=== PATIENT | female | born 1945 | race Caucasian/White ===

== ENCOUNTER 2019-07-17 18:25 | Emergency (ER) | payer OTHER, SELFPAY ==
[2019-07-17] VITALS (9 sets, daily range): BP systolic 143–196; BP diastolic 80–97; PULSE 68–77; RESP 16; TEMP 36.3–37; O2SAT 96–99; BMI 21.7
--- NOTE | 2019-07-17 18:30 | DI.RAD.S_ITS ---
PROCEDURE: XR SHOULDER LT MIN 2V INDICATIONS: possible dislocation TECHNIQUE: 2 views of the shoulder were acquired. COMPARISON: None. FINDINGS: Bones: The humeral head is dislocated inferior to the glenohumeral joint. There is a contour irregularity of the humeral head. Soft tissues: No suspicious soft tissue calcifications. IMPRESSION: Anterior dislocation with suspected humeral head fracture. Is not well characterized secondary to positioning. Dictated by: Violeta Higgins M.D. on 07/17/2019 at 18:54 Approved by: Violeta Higgins M.D. on 07/17/2019 at 18:55
--- NOTE | 2019-07-17 18:36 | ED_ITS ---
HPI - General Adult General Chief complaint: Extremity Injury, Upper Stated complaint: fall, injury to left shoulder Time Seen by Provider: 07/17/19 18:30 Source: patient Mode of arrival: Wheelchair Limitations: no limitations History of Present Illness HPI narrative: Patient is a 73-year-old female not on blood thinners here for evaluation of a left shoulder injury. She states that earlier this evening she tripped and fell landing on her left shoulder. Has had pain since then. She also has a bruise on her left forehead. There was no loss of consciousness. Has chronic neck pain she states that this has not changed. No other injuries reported from the event. She did see the medics over on [facility] and arrived in a sling. Related Data Previous Rx's Medication Instructions Recorded hydrocodone-acetaminophen [Seymour] 1 tab PO Q4-6H PRN #14 tab 07/17/19 Review of Systems Constitutional Constitutional: Denies fever(s) Eyes Eyes: Denies diplopia Cardiovascular Cardiovascular: Denies chest pain and Denies dyspnea Respiratory Respiratory: Denies dyspnea Gastrointestinal Gastrointestinal: Denies abdominal pain, Denies nausea and Denies vomiting Musculoskeletal Musculoskeletal: Denies back pain Comments: Left shoulder pain Integumentary/Breasts Comments: Bruise above the left eye Neurologic Neurologic: Denies behavioral changes Psychiatric Psychiatric: Denies behavioral changes Hematologic/Lymphatic Hematologic/Lymphatic: Denies easy bleeding and Denies easy bruising Patient History Medical History Healthy adult (Acute) Social History Smoking Status: Never smoker alcohol intake frequency: holidays/special occasions only Substance Use Type: does not use Exam Initial Vital Signs Initial Vital Signs: Vital Signs Temperature 97.4 F L 07/17/19 18:32 Pulse Rate 72 07/17/19 18:32 Respiratory Rate 16 07/17/19 18:32 Blood Pressure 196/90 H 07/17/19 18:32 Pulse Oximetry 97 07/17/19 18:32 Const General: cooperative and comfortable Orientation: alert, awake and oriented x3 HENMT Head: abrasion Nose: external nose normal Face and sinus: normal facial exam Resp Effort & Inspection: normal respiratory effort Auscultation: clear to auscultation bilaterally Cardio Rate: regular rate Rhythm: regular rhythm Pulses: radial pulses present on the left Back/Spine/Pelvis Cervical Spine: No collar present and No cervical spinal tenderness Skin Other: Small abrasion above the left eye. Small amount ecchymosis. No depressed skull fracture felt underneath Neuro General: alert, awake and oriented x3 Other: Sensation intact over left shoulder and distal left arm Extrem Other: Obvious deformity of left shoulder. Left elbow unremarkable. Left wrist left hand unremarkable Psych Appearance: grossly normal and well kempt Procedures Orthopedic Joint Reduction Joint #1: Time Out Performed: Yes Side: left Joint Reduction Location: shoulder Analgesia: procedural sedation Shoulder Technique Used (if applicable): Milch Post-reduction neuro exam: intact and no change Post-reduction vascular: intact and no change Post Reduction X-Ray Obtained: Yes Splint Applied: Yes (Sling) Patient Tolerated Procedure: Well and No complications Orthopedic Splinting/Casting Injury #1: Side: left Upper Extremity Injury Location: shoulder Upper Extremity Immobilizer: sling/shoulder immobilizer Post splinting neuro exam: intact Post splinting vascular exam: intact Placed by: Nursing Procedural Sedation Patient Age: Patient is 5yrs or older Consent signed: Yes Time out performed: Yes Indication: fracture/dislocation reduction Presedation Evaluation: See HPI ASA Class: I Mallampati Airway Classification: Class I Preparation: monitoring and evaluation advisor applied, pulse oximeter, capnometry used and s upplemental O2 applied IV Propofol dose (mg): 70 ED Sedation Level: Moderate (Concious) Patient Tolerated Procedure: Well Complications: none Course Orders Ordered: Discontinued Medications Hydrocodone Bitart/Acetaminophen (Seymour 5/325) 1 tab PO NOW ONE Stop: 07/17/19 20:18 Last Admin: 07/17/19 20:22 Dose: 1 tab Documented by: NICOLEEED Hydrocodone Bitart/Acetaminophen (Vicodin Prepack) 1 bottle MISC SEEINSTR ONE Stop: 07/17/19 20:18 Last Admin: 07/17/19 20:22 Dose: 1 bottle Documented by: NICOLEEED Hydromorphone HCl (Dilaudid) 0.5 mg IV NOW ONE Stop: 07/17/19 18:41 Last Admin: 07/17/19 18:50 Dose: 0.5 mg Documented by: ABHAY Hydromorphone HCl (Dilaudid) 0.5 mg IV NOW ONE Stop: 07/17/19 18:58 Last Admin: 07/17/19 19:01 Dose: 0.5 mg Documented by: ABHAY Sodium Chloride (Normal Saline 0.9%) 1,000 mls @ 125 mls/hr IV CONT QUITA Last Infusion: 07/17/19 20:17 Dose: 0 mls/hr Documented by: Admin: 07/17/19 19:33 Dose: 125 mls/hr Documented by: THOMAS Propofol (Diprivan) 100 mg IV NOW ONE Stop: 07/17/19 19:23 Last Admin: 07/17/19 19:32 Dose: 100 mg Documented by: THOMAS Vital Signs Vital signs: Vital Signs - 8 hr 07/17/19 18:32 07/17/19 18:50 07/17/19 19:46 Temperature 97.4 F L Pulse Rate 72 72 Pulse Rate [Left Radial] 68 Respiratory Rate 16 16 Blood Pressure 196/90 H Blood Pressure [Right Arm] 175/97 H Pulse Oximetry 97 97 07/17/19 19:51 07/17/19 19:56 07/17/19 20:01 Temperature Pulse Rate 69 70 77 Pulse Rate [Left Radial] Respiratory Rate 16 16 16 Blood Pressure Blood Pressure [Right Arm] 175/97 H 155/88 H 143/86 H Pulse Oximetry 97 96 96 07/17/19 20:16 07/17/19 20:36 Temperature 98.6 F Pulse Rate 71 74 Pulse Rate [Left Radial] Respiratory Rate 16 16 Blood Pressure 170/80 H Blood Pressure [Right Arm] 173/87 H Pulse Oximetry 98 99 Medical Decision Making Lab Data Labs: Point of Care Testing Test Results Not applicable Point of care testing: Point of Care Testing Test Results Not applicable Imaging Data X-ray shoulder: Radiologist's impression: [address] [address] XRay Report Signed Patient: Rabia Saha#: [id number] : 4Acct:[id number] Age/Sex: 73 / FDate of Service: 07/17/19 Loc: ED Accession Number: [id number] Procedure: XR shoulder LT min 2V Ordering Provider: Guevara Hood D.O. PROCEDURE: XR SHOULDER LT MIN 2V INDICATIONS: possible dislocation TECHNIQUE: 2 views of the shoulder were acquired. COMPARISON: None. FINDINGS: Bones: The humeral head is dislocated inferior to the glenohumeral joint. There is a contour irregularity of the humeral head. Soft tissues: No suspicious soft tissue calcifications. IMPRESSION: Anterior dislocation with suspected humeral head fracture. Is not well characterized secondary to positioning. Dictated by: Violeta Higgins M.D. on 07/17/2019 at 18:54 Approved by: Violeta Higgins M.D. on 07/17/2019 at 18:55 Post reduction x-ray: Radiologist's impression: [address] [address] XRay Report Signed Patient: Rabia Saha#: [id number] : 4Acct:[id number] Age/Sex: 73 / FDate of Service: 07/17/19 Loc: ED Accession Number: [id number] Procedure: XR shoulder LT min 2V Ordering Provider: Guevara Hood D.O. PROCEDURE: XR SHOULDER LT MIN 2V INDICATIONS: post reduction TECHNIQUE: 2 views of the shoulder were acquired. COMPARISON: [facility], , XR SHOULDER LT MIN 2V, 07/17/2019, 18:34. FINDINGS: Bones: There has been attempted reduction of previous anterior dislocation. Humeral head remains inferior to the glenohumeral joint although less prominent as opposed to prior exam. Comminuted fracture of the humeral head is identified. Soft tissues: No suspicious soft tissue calcifications. IMPRESSION: Persistent dislocation as above with comminuted fracture of the humeral head. Dictated by: Violeta Higgins M.D. on 07/17/2019 at 20:14 Approved by: Violeta Higgins M.D. on 07/17/2019 at 20:16 [facility] Narrative Medical decision making narrative: Initially tried the Andrade technique however this was unsuccessful reducing the shoulder. She was then sedated with propofol with a clinically successful reduction of the shoulder. I did feel a ?clunk? and I was able to range her left shoulder while she was still sedated with out any restrictions. I was able to touch her right shoulder with her left arm. My wet read of the post reduction x-rays I thought that the shoulder was reduced. I felt that the abnormal location of the humeral head was secondary to the fracture. This was also in the setting where clinically I thought that her shoulder was reduced. Patient was eager to be discharged they [place] They were discharged before the official read of the post reduction x-rays. She was placed in a splint. Was given a copy of her x-rays on a CD. Was given return precautions and follow- up instructions. She was neurovascularly intact afterwards. Upon review of the post reduction x-rays official review there was some concern that the shoulder is not completely reduced. I attempted to contact the patient at [phone]. This was done approximately 2300 hours on 07/17/19. I left a message that number asking her to call the emergency department so that we could discuss this x-ray. 07/18/19 0700: Attempted to contact the patient again this morning at the above number. Again requesting patient to call us in the emergency department to discuss it. I did leave the patient's information to Dr. Emery who took over on the day shift if the patient were to call back. Do recommend that she comes back for another evaluation Discharge Plan Departure Patient Disposition: Home Clinical Impression: Abrasion of skin Anterior shoulder dislocation Qualifiers: Encounter type: initial encounter Laterality: left Qualified Code(s): S43.015A - Anterior dislocation of left humerus, initial encounter Fracture, humerus, head Qualifiers: Encounter type: initial encounter Fracture type: closed Laterality: left Qualified Code(s): S42.292A - Other displaced fracture of upper end of left humerus, initial encounter for closed fracture Fall Qualifiers: Encounter type: initial encounter Qualified Code(s): W19.XXXA - Unspecified fall, initial encounter Discharge Date/Time: 07/17/19 20:37 Instructions: How to Use a Sling, DI for Shoulder Dislocation, DI for Shoulder Fracture Activity Restrictions/Additional Instructions: When you return home you do need to talk with your primary provider about a referral to see orthopedics. Use the sling like we discussed. Avoid the positions of your shoulder like we discussed. Return to the emergency depar tment for any new or worsening symptoms Prescriptions: New hydrocodone-acetaminophen [Seymour] 5-325 mg tablet 1 tab PO Q4-6H PRN (Reason: pain) Qty: 14 RF: 0
[2019-07-17] MEDS: HYDROMORPHONE 0.5 MG INJ IV ×2 (18:50→19:01)
[2019-07-17] MEDS: PROPOFOL 200 MG/20 ML VIAL 100 MG IV (19:32)
[2019-07-17] MEDS: SODIUM CHLORIDE 0.9% 1,000 ML 125 ML IV (19:33)
--- NOTE | 2019-07-17 19:56 | DI.RAD.S_ITS ---
PROCEDURE: XR SHOULDER LT MIN 2V INDICATIONS: post reduction TECHNIQUE: 2 views of the shoulder were acquired. COMPARISON: [facility], CR, XR SHOULDER LT MIN 2V, 07/17/2019, 18:34. FINDINGS: Bones: There has been attempted reduction of previous anterior dislocation. Humeral head remains inferior to the glenohumeral joint although less prominent as opposed to prior exam. Comminuted fracture of the humeral head is identified. Soft tissues: No suspicious soft tissue calcifications. IMPRESSION: Persistent dislocation as above with comminuted fracture of the humeral head. Dictated by: Violeta Higgins M.D. on 07/17/2019 at 20:14 Approved by: Violeta Higgins M.D. on 07/17/2019 at 20:16
[2019-07-17] MEDS: HYDROCODONE/ACET 5/325 PREPACK 1 BOTTLE MISC (20:22)
[2019-07-17] MEDS: HYDROCODONE/ACET 5/325 TABLET 1 TAB PO (20:22)
--- NOTE | 2019-07-17 21:02 | PC.NURSE ---
Sling to left shoulder. CMS intact, family member and pt verbalize understanding of use of sling and CMS checks. Radiology CD given to patient's son, Drew.
== END 2019-07-17 20:37 | disposition home or self-care (01) ==
PROVIDERS: Emergency Provider Emergency Medicine
DX: S43.015A Anterior dislocation of left humerus, initial encounter (principal); S42.292A Other displaced fracture of upper end of left humerus, initial encounter for closed fracture; S00.81XA Abrasion of other part of head, initial encounter; W01.0XXA Fall on same level from slipping, tripping and stumbling without subsequent striking against object, initial encounter
CPT/HCPCS: 23665; 36415; 73030; 94770; 96361; 96374; 99152; 99283; 99285; J1170; J2704

== ENCOUNTER 2019-07-20 11:08 | Emergency (ER) | payer OTHER, SELFPAY ==
[2019-07-20 11:13] VITALS: BP 162/80; PULSE 85; RESP 16; TEMP 37.3; O2SAT 100
--- NOTE | 2019-07-20 11:14 | DI.RAD.S_ITS ---
PROCEDURE: XR SHOULDER LT MIN 2V INDICATIONS: ?dislocation known fracture TECHNIQUE: 2 views of the shoulder were acquired. COMPARISON: [facility], CR, XR SHOULDER LT MIN 2V, 07/17/2019, 19:59. FINDINGS: Bones: Comminuted humeral head fracture. As previously identified, the humeral head appears to remain inferior to the glenohumeral joint. Overall appearance has not significantly changed. Soft tissues: No suspicious soft tissue calcifications. IMPRESSION: Persistent appearance of inferiorly positioned humeral head in relation to the glenohumeral joint. Comminuted humeral head fracture is again noted. Further evaluation of positioning may be obtained with additional views. Dictated by: Violeta Higgins M.D. on 07/20/2019 at 11:34 Approved by: Viloeta Higgins M.D. on 07/20/2019 at 11:36
--- NOTE | 2019-07-20 11:20 | ED.UPPEXIN ---
HPI - Extremity Injury (Upper) <JAIRON Canchola - Last Filed: 07/20/19 13:07> General Chief Complaint: Extremity Injury, Upper Stated Complaint: reset left shoulder Time Seen by Provider: 07/20/19 11:11 Source: patient Mode of arrival: Ambulatory Limitations: no limitations History of Present Illness HPI narrative: 73yo female presents to the emergency department for re-evaluation of her left shoulder she tripped and fell on her left shoulder. She was recently seen in the emergency department on 07/17/2019 and diagnosed with a left shoulder dislocation and comminuted fracture of the humeral head. After reduction, repeat x-ray was completed, patient left the emergency department in her you to catch a fairy. Continued dislocation was seen on post reduction x-ray, previous provider made multiple times to contact patient to return to the emergency department for re-evaluation. Patient returned today she states her cell phone medical office receptionist assistant is body and she finally was able to retrieve her voice mail message as. Patient reports decreased pain, she states it is a dull aching 5/10 pain and that is better with rest and worse with movement. She states the swelling and bruising have decreased. She denies any numbness, tingling, color change, dizziness, chest pain, shortness of breath, abdominal pain, or other concerns. Related Data Home Medications Medication Instructions Recorded Confirmed omeprazole 40 mg PO DAILY 07/20/19 07/20/19 oxybutynin chloride 5 mg PO DAILY 07/20/19 07/20/19 Previous Rx's Medication Instructions Recorded hydrocodone-acetaminophen [Upson] 1 tab PO Q4-6H PRN #14 tab 07/17/19 hydrocodone-acetaminophen [Upson] 1 tab PO Q4-6H PRN #10 tab 07/20/19 Allergies Allergy/AdvReac Type Severity Reaction Status Date / Time azithromycin AdvReac Severe Palpitation Verified 07/20/19 11:38 s Review of Systems <JAIRON Canchola - Last Filed: 07/20/19 13:07> Review of Systems Narrative: REVIEW OF SYSTEMS: GENERAL: Denies fever or chills. HENT: No head trauma. EYES: No double vision or vision loss. CARDIOVASCULAR: No chest pain or syncope. RESPIRATORY: No shortness of breath or cough. GASTROINTESTINAL: No nausea, vomiting, diarrhea, or constipation. GENITOURINARY: No flank pain or dysuria. MUSCULOSKELETAL: Complains of left shoulder pain, see HPI. INTEGUMENTARY: No rash, lesions, or pruritus. NEURO: No numbness, tingling. PSYCH: No behavior or mood changes. Patient History <JAIRON Canchola - Last Filed: 07/20/19 13:07> Medical History Healthy adult (Acute) Social History Smoking Status: Never smoker alcohol intake frequency: holidays/special occasions only Substance Use Type: does not use Exam <JAIRON Canchola - Last Filed: 07/20/19 13:07> Initial Vital Signs Initial Vital Signs: Vital Signs Temperature 99.2 F 07/20/19 11:13 Pulse Rate 85 07/20/19 11:13 Respiratory Rate 16 07/20/19 11:13 Blood Pressure 162/80 H 07/20/19 11:13 Pulse Oximetry 100 07/20/19 11:13 PHYSICAL EXAMINATION: GENERAL: Well groomed, alert, and cooperative. Answers questions promptly and appropriately. Vital signs noted. HENT: Normocephalic, atraumatic. EYES: Symmetrical, sclera white, no periorbital swelling. CARDIOVASCULAR: S1 and S2 sounds normal. Regular rate and rhythm, no murmurs, clicks, or bruits. No pedal edema. RESPIRATORY: Normal respiratory rate, trachea midline, airway patent. No stridor, nasal flaring or accessory muscle use. Lungs are clear in all cm. MUSCULOSKELETAL: Tenderness to palpation of left shoulder joint, decreased extension and internal/external rotation. Dark purple ecchymosis noted to distal area of left upper arm, swelling noted to elbow. Normal gait and coordination. Equal tone and mass bilaterally. No spinal tenderness or deformities. EXTREMITIES: CMS intact. No pedal edema. SKIN: Warm, dry, soft, appropriate color for ethnicity. No lesions, rashes, or wounds. NEURO: Alert and Oriented X 3. No sensory deficits. PSYCH: Appropriate affect and mood. <Klaudia Vargas DO - Last Filed: 07/22/19 06:58> Initial Vital Signs Initial Vital Signs: Vital Signs Temperature 99.2 F 07/20/19 11:13 Pulse Rate 85 07/20/19 11:13 Respiratory Rate 16 07/20/19 11:13 Blood Pressure 162/80 H 07/20/19 11:13 Pulse Oximetry 100 07/20/19 11:13 Course <JAIRON Canchola - Last Filed: 07/20/19 13:07> Course Course Narrative: Dr. Goldsmith, orthopedic surgeon, was consulted about patient. He spoke with Dr. Vargas over the phone and after reviewing the x-rays he recommended no further reduction necessary as there is a small lip providing complete reduction of the shoulder. The dislocation has improved since initial x-ray, he recommends outpatient follow-up and continued use of a sling. He approved her for travel if she wishes to follow up on the [facility] as patient stated. An additional disc with her x-ray from today was given to patient. Orders Ordered: ED Orders 07/20/19 11:14 XR shoulder LT min 2V Stat Reevaluation(s) Reevaluation #1: Patient was informed of plan of care, request more pain medication for travel. Consultations Consultation #1: Dr. Goldsmith consulted with Dr. Vargas. Consultation #2: Staffed with Dr. Vargas. Vital Signs Vital signs: Vital Signs - 8 hr 07/20/19 11:13 07/20/19 12:12 07/20/19 12:19 Temperature 99.2 F Pulse Rate 85 79 81 Respiratory Rate 16 19 16 Blood Pressure 162/80 H 138/87 Blood Pressure [Left Arm] 138/87 Pulse Oximetry 100 97 98 <Klaudia Vargas DO - Last Filed: 07/22/19 06:58> Orders Ordered: ED Orders 07/20/19 11:14 XR shoulder LT min 2V Stat Vital Signs Vital signs: Vital Signs - 8 hr 07/20/19 11:13 07/20/19 12:12 07/20/19 12:19 Temperature 99.2 F Pulse Rate 85 79 81 Respiratory Rate 16 19 16 Blood Pressure 162/80 H 138/87 Blood Pressure [Left Arm] 138/87 Pulse Oximetry 100 97 98 MDM - Extremity Injury (Upper) <JAIRON Canchola - Last Filed: 07/20/19 13:07> Medical Records Attestation: I reviewed the patient's medical records. Lab Data Attestation: I reviewed the patient's lab results. Imaging Data Shoulder Xray: Radiologist's impression: [address] [place] [id number] XRay Report Signed Patient: Filomena Saha JMR#: [id number] : 4Acct:[id number] Age/Sex: 73 / FDate of Service: 07/20/19 Loc: ED Accession Number: [id number] Procedure: XR shoulder LT min 2V Ordering Provider: Klaudia Vargas D.O. PROCEDURE: XR SHOULDER LT MIN 2V INDICATIONS: ?dislocation known fracture TECHNIQUE: 2 views of the shoulder were acquired. COMPARISON: [facility], , XR SHOULDER LT MIN 2V, 07/17/2019, 19:59. FINDINGS: Bones: Comminuted humeral head fracture. As previously identified, the humeral head appears to remain inferior to the glenohumeral joint. Overall appearance has not significantly changed. Soft tissues: No suspicious soft tissue calcifications. IMPRESSION: Persistent appearance of inferiorly positioned humeral head in relation to the glenohumeral joint. Comminuted humeral head fracture is again noted. Further evaluation of positioning may be obtained with additional views. Dictated by: Violeta Higgins M.D. on 07/20/2019 at 11:34 Approved by: Violeta Higgins M.D. on 07/20/2019 at 11:36 MDM Narrative Medical decision making narrative: This is a 73-year-old female who presents emergency department after being seen on 07/17/2019 and diagnosed with a left humeral head fracture and left dislocated shoulder. Her left shoulder was reduced, and she left prior to her post reduction x-ray. The patient was called to return to the emergency department as her shoulder remains dislocated. After consultation with the orthopedic surgeon, he recommended no further reduction attempts as there is a small lip providing complete reduction. Orthopedic cleared patient for travel and suggested follow-up within the next few weeks. Left upper extremity with small amount of swelling and bruising noted, good service supervisor strength, CMS intact, no concerns for hemodynamic compromise. Patient verbalized understanding of plan of care and had no further questions, she verbalize she would like to follow up on the [facility] where she is from. She was given disc of the image taken today so she can have it for follow-up. She was encouraged to continue using the sling and refrain from lifting objects for orthopedic advice. Patient was given some additional pain medication for travel per request. Return instructions given for new or worsening symptoms. Discharge Plan Departure Patient Disposition: Home Clinical Impression: Anterior shoulder dislocation Qualifiers: Encounter type: initial encounter Laterality: left Qualified Code(s): S43.015A - Anterior dislocation of left humerus, initial encounter Fracture, humerus, head Qualifiers: Encounter type: initial encounter Fracture type: closed Laterality: left Qualified Code(s): S42.292A - Other displaced fracture of upper end of left humerus, initial encounter for closed fracture Discharge Date/Time: 07/20/19 12:19 Instructions: DI for Shoulder Dislocation, DI for Humeral Fracture Activity Restrictions/Additional Instructions: Thank you for entrusting me with your care today. As discussed, you had a left shoulder dislocation and a left humeral head fracture. Our orthopedic surgeon was consulted today and he recommended outpatient follow-up with an orthopedic as soon as possible. Continue to use the sling, do not lift your arm above your head. Do not lift anything with that arm. You can take hydrocodone or Aleve for pain control. Return emergency department for new or worsening symptoms. Prescriptions: New hydrocodone-acetaminophen [Upson] 5-325 mg tablet 1 tab PO Q4-6H PRN (Reason: pain) Qty: 10 RF: 0 No Action hydrocodone-acetaminophen [Upson] 5-325 mg tablet 1 tab PO Q4-6H PRN (Reason: pain) Qty: 14 RF: 0 omeprazole 40 mg capsule,delayed release(DR/EC) 40 mg PO DAILY RF: 0 oxybutynin chloride 5 mg tablet extended release 24hr 5 mg PO DAILY RF: 0 Referrals: Miko Bloom MD [Non-Staff] - (L humeral head fracture and left shoulder dislocation.)
[2019-07-20 12:12] VITALS: BP 138/87; PULSE 79; RESP 19; O2SAT 97
[2019-07-20 12:19] VITALS: BP 138/87; PULSE 81; RESP 16; O2SAT 98
== END 2019-07-20 12:19 | disposition home or self-care (01) ==
PROVIDERS: Emergency Provider Nurse Practitioner
DX: S43.015A Anterior dislocation of left humerus, initial encounter (principal); S42.292A Other displaced fracture of upper end of left humerus, initial encounter for closed fracture; W01.0XXA Fall on same level from slipping, tripping and stumbling without subsequent striking against object, initial encounter
CPT/HCPCS: 73030; 99282; 99283